=== PATIENT | female | born 1980 | race Caucasian/White ===

== ENCOUNTER 2016-12-25 10:20 | Outpatient (CLI) | payer OTHER ==
--- NOTE | 2016-12-25 13:05 | DIAGNOSTIC IMAGING REPORT ---
PROCEDURE: MG BILATERAL DIAGNOSTIC W/CAD INDICATION: Left upper outer quadrant breast lump. Family history of breast cancer in the grandmother and great aunts. TECHNIQUE: Standard CC and MLO views of each breast. Spot compression views of the upper outer left breast in CC and MLO projections. Direct lateral left mammogram. CAD was used. The patient then went on to ultrasound where hernandez scale and color Doppler sonographic imaging of the left breast was performed. COMPARISON: 05/23/2012, 09/03/2008 FINDINGS: Mammograms: Dense heterogeneous breast tissue is present bilaterally. No focal densities. No visible mass with focal spot compression in the upper outer left breast. No areas of architectural distortion in either breast. No suspicious clustered microcalcifications. Ultrasound: Dense fibrocystic glandular tissue seen in the upper outer left breast. Occasional tiny (3 mm) simple cysts present. No focal mass, no dominant cyst, no suspicious shadowing, or abnormal vascularity. IMPRESSION: 1. Dense breast tissue bilaterally may decrease the sensitivity of mammography. Given this, no focal mammographic abnormalities. 2. Dense fibroglandular/fibrocystic breast tissue in the left upper outer quadrant without underlying sonographic abnormality. 3. Clinical follow-up only. Screening mammography beginning at age 38. Findings and recommendations were discussed with the patient. RESULT CODE: 1- Negative.
== END 2016-12-25 23:00 ==
LOC: MAM SRH 10:20
DX: N63 Unspecified lump in breast (principal)